=== PATIENT | female | born 1980 | race Caucasian/White ===

== ENCOUNTER 2017-09-30 10:18 | Inpatient (IN) | payer BC ==
[2017-09-30] MEDS: Lactated Ringer's 1,000 ML IV SCH ×2 (10:56→11:53)
[2017-09-30] MEDS ORDERED: Promethazine HCl 25 MG/ML VIAL IM PRN ×2 (11:05→15:15)
[2017-09-30] MEDS ORDERED: Ondansetron HCl/PF 4 MG/2 ML Vial IVP PRN ×4 (11:05→15:15)
[2017-09-30] MEDS ORDERED: CEFAZOLIN/Water 2 GM/20 ML SYRINGE SLOW IVP SCH (11:05)
[2017-09-30] MEDS ORDERED: Bicitra 30 ML UDCUP PO SCH (11:05)
[2017-09-30] MEDS ORDERED: Lactated Ringer's 1,000 ML IV SCH ×2 (11:05→14:46)
[2017-09-30 11:12] VITALS: BMI 40.6
[2017-09-30 11:16] LABS: Hematocrit 34.7 % (36.0-47.0); Mean Platelet Volume 7.4 fL (7.4-10.4); Red Blood Cell (RBC) Count 4.11 mill/uL (4.20-5.40); White Blood Cell (WBC) Count 11.2 thou/uL (4.8-10.8)
[2017-09-30] MEDS ORDERED: Oxytocin 10 UNITS/ML VIAL ONE (11:53)
[2017-09-30] MEDS ORDERED: Morphine PF 1 MG/ML SYR ONE (11:54)
[2017-09-30] MEDS ORDERED: PHENYLEPHRINE-NS 100 MCG/ML 10 ML SYRINGE ONE (11:54)
[2017-09-30] MEDS ORDERED: Ondansetron HCl/PF 4 MG/2 ML Vial ONE (11:54)
[2017-09-30] MEDS ORDERED: Ketorolac Tromethamine 30 MG/ML VIAL ONE (11:54)
[2017-09-30] MEDS ORDERED: ePHEDrine/0.9% NaCl/PF SYRINGE 50 mg/10 ml ONE (11:54)
[2017-09-30] MEDS ORDERED: LR w/ Pitocin 40 units/1000 ML BAG IV SCH (14:46)
[2017-09-30] MEDS ORDERED: Zolpidem Tartrate 5 MG TAB PO PRN (14:46)
[2017-09-30] MEDS ORDERED: Lanolin Ointment 7 GM TUBE TOP PRN (14:46)
[2017-09-30] MEDS ORDERED: Varicella virus, LIVE 0.5 ML VIAL SC ONE (14:46)
[2017-09-30] MEDS ORDERED: diphenhydrAMINE 25 MG CAP PO PRN (14:46)
[2017-09-30] MEDS ORDERED: Measles/Mumps/Rubella 10 MCG/0.5 ML VIAL SC ONE (14:46)
[2017-09-30] MEDS ORDERED: Adacel (T-DAP) 0.5 ML VIAL IM ONE (14:46)
[2017-09-30] MEDS ORDERED: LR / Pitocin 40 units/1000 ml 1,000 ML ONE (14:56)
[2017-09-30] MEDS ORDERED: Naloxone HCl 0.4 mg/ml Vial IVP PRN ×2 (15:15)
[2017-09-30] MEDS ORDERED: Meperidine HCl/PF 25 MG/ML VIAL SLOW IVP PRN (15:15)
[2017-09-30] MEDS ORDERED: Promethazine HCl 25 MG SUPP PR PRN (15:15)
[2017-09-30] MEDS ORDERED: Eucerin (Mineral Oil/Petrolatum,White) 30 gm Jar TOP PRN (15:15)
[2017-09-30] MEDS ORDERED: Ketorolac Tromethamine 30 MG/ML VIAL IVP SCH (15:15)
[2017-09-30] MEDS ORDERED: HYDROmorphone 2 MG/ML VIAL SLOW IVP PRN (15:15)
[2017-09-30] MEDS ORDERED: Ketorolac Tromethamine 30 MG/ML VIAL IVP PRN (15:15)
[2017-09-30] MEDS ORDERED: Naloxone HCl 0.4 mg/ml Vial IV PRN (15:15)
[2017-09-30] MEDS ORDERED: Communication Order-Pharmacy FS SCH (15:15)
[2017-09-30] MEDS ORDERED: diphenhydrAMINE 50 MG/ML VIAL IVP PRN (15:15)
[2017-09-30] MEDS ORDERED: LR / Pitocin 40 units/1000 ml 1,000 ML IV SCH (15:45)
--- NOTE | 2017-09-30 20:13 | OP ---
DATE OF OPERATION: 09/30/2017 PREOPERATIVE DIAGNOSES: 1. A 39 weeks' gestation by good criteria. 2. Prior section x2 for repeat at term. POSTOPERATIVE DIAGNOSES: 1. A 39 weeks' gestation by good criteria. 2. Prior section x2 for repeat at term. PROCEDURE: Repeat low transverse section without extension. SURGEON: Yannick Juarez M.D. SIZING MACHINE AND DRIER OPERATOR: Ana Cristina Dick D.O. ANESTHESIA: Subarachnoid block, Nba Gonzales M.D. ESTIMATED BLOOD LOSS: 250 mL. MEDICATIONS: Two grams Ancef preincision. DEEP VENOUS THROMBOSIS PROPHYLAXIS: SCDs. OPERATIVE FINDINGS: 1. Vigorous female , Apgars and weight pending to nursery, clear fluid. 2. Normal appearing uterus, tubes, and ovaries bilaterally. 3. Hemostasis with clear urine. 4. Counts correct x2 at the end of the procedure. DISPOSITION: To the recovery room. DESCRIPTION OF OPERATIVE PROCEDURE: After obtaining proper informed consent, patient was taken to [facility] operating room where subarachnoid block was achieved without difficulty. Patient was prepped and draped in the usual manner. A previous Pfannenstiel incision identified and was marked and incised and carried down the fascia. The midline was incised sharply superiorly and laterally with curved Howard scissors. Rectus dissected off sharply superiorly and inferiorly, taking care to avoid trauma to underlying viscera entering the peritoneal cavity. Taj 0 retractor placed inside. A very thi n lower uterine segment was identified from previous C-sections. It was incised sharply and extende d superiorly and laterally with finger fractionization. Clear fluid noted. The was noted to be vertex and was elevated through the hysterotomy, suctioned, cord clamped and cut and handed off to team in attendance. Usual cord blood sample obtained. Placenta removed manually. Uter us was left in situ and hysterotomy was noted to be without extension, was closed in a running locki ng #1 Monocryl suture. Good hemostasis noted after single layer of closure. Clear urine was noted. Counts correct x1. The Taj 0 retractor was removed. The rectus was inspected and noted to be dry. The fascia reapproximated using running continuous 0 PDS suture. Subcutaneous tissue irrigate d and rendered hemostatic with Bovie cautery, reapproximated using a 2-0 plain gut. Skin reapproxim ated with jessee and counts were correct x2, taken to recovery room in good condition.
[2017-09-30] MEDS: metFORMIN 500 MG TAB PO SCH (21:28)
[2017-10-01] MEDS ORDERED: HYDROcodone/Acetaminophen 5/325 mg Tablet PO PRN ×2 (03:15)
[2017-10-01] MEDS ORDERED: Meperidine HCl/PF 25 MG/ML VIAL IM PRN (03:15)
[2017-10-01 04:41] LABS: Hematocrit 29.5 % (36.0-47.0); Mean Platelet Volume 7.9 fL (7.4-10.4); White Blood Cell (WBC) Count 11.2 thou/uL (4.8-10.8)
[2017-10-01] MEDS: Prenatal Vitamin 1 TAB PO SCH (09:31)
[2017-10-01] MEDS: Simethicone Chewable 80 MG TAB PO PRN ×2 (09:31→21:44)
[2017-10-01] MEDS: Ibuprofen 800 MG TAB PO SCH ×2 (14:17→21:43)
[2017-10-01] MEDS: Docusate Calcium (SURFAK) 240 MG CAP PO SCH (21:43)
[2017-10-02] MEDS: metFORMIN 500 MG TAB PO SCH (01:35)
[2017-10-02] MEDS: Ibuprofen 800 MG TAB PO SCH ×2 (06:07→13:38)
[2017-10-02 08:40] VITALS: BP 121/68; TEMP 98
[2017-10-02] MEDS: Prenatal Vitamin 1 TAB PO SCH (09:56)
[2017-10-02] MEDS: Docusate Calcium (SURFAK) 240 MG CAP PO SCH (09:56)
--- NOTE | 2017-10-02 12:50 | DIS ---
DATE OF ADMISSION: 09/30/2017 DATE OF DISCHARGE: 10/02/2017 LOCATION: Room 331, 3 [facility]. PRINCIPAL DIAGNOSES: 1. Prior section. 2. Repeat section at term. PRINCIPAL PROCEDURE: Repeat low-transverse section (scheduled). HISTORY OF PRESENT ILLNESS: In brief, this is a patient of Dr. Juarez who presented for a scheduled repeat at term. She is a 3, para 2 on admission, now para 3. For full details o n that surgery, please turn to Dr. Juarez's operative note. I evaluated the patient on postop day # 2 and found her to be clinically stable. Her vital signs showed a temperature range of 97.9-97.5, b lood pressure ranged from 120/64-122/57, pulse was in the 70s. On lab review, her predelivery hemat ocrit was 34, /postop hematocrit was 29.5. PHYSICAL EXAMINATION: She was in no acute distress. Abdomen was soft and nontender. Incision was clean, dry, and intact and stapled closed. REVIEW OF SYSTEMS: The patient was able to ambulate well, was tolerating a regular diet, had passag e of flatus and had a bowel movement prior to 10/02/2017. ASSESSMENT: On 10/02/2017, the patient was clinically stable and agreed for discharge home at 1300 (projected) on 10/02. She has an appointment with Dr. Juarez to remove jessee. She was sent home on Motrin and Ultram p.r.n. medications. DISCHARGE INSTRUCTIONS: She was told to call for any fevers, abnormal incisional drainage or abnorm al abdominal discomfort. At the time of discharge, there was no evidence of metritis, postop compli cation or abnormal vaginal bleeding.
== END 2017-10-02 16:50 | disposition home or self-care (01) | DRG 766 ==
LOC: L&D 10:18 → 3SW 15:59
PROVIDERS: ADMIT Obstetrics & Gynecology; ATTEND Obstetrics & Gynecology
PROC: 10D00Z1 Extraction of Products of Conception, Low, Open Approach (ICD-10-PCS; principal; 2017-09-30)
DX: O34.211 Maternal care for low transverse scar from previous cesarean delivery (principal); Z37.0 Single live birth; Z3A.39 39 weeks gestation of pregnancy
CPT/HCPCS: 36415; 85027; 86780; 86850; 86900; 86901; 87340; J1885; J2175; J2274; J2405; J2590